=== PATIENT | female | born 1995 | race Caucasian/White ===

== ENCOUNTER 2021-04-03 21:04 | Emergency (ER) | payer BC ==
[~2021-04-03] VITALS: Ht 177.8 cm; Wt 103.7 kg
[2021-04-03] MEDS ORDERED: PRAZ5CAP PO (21:22)
[2021-04-03] MEDS ORDERED: PRIS50TA PO (21:22)
[2021-04-03] MEDS ORDERED: ONDANSETRON 4MG/2ML VIAL IV ONE (23:20)
[2021-04-03] MEDS ORDERED: NS 1,000 ML IV ONE (23:20)
[2021-04-04 00:10] LABS: BASO % 0.1 % (0.0-1.0); HEMOGLOBIN 13.7 g/dl (12.0-15.5); LYMPH # 1.2 10^3/uL (1.5-5.0); LYMPH % 8.8 % (24.0-44.0); MEAN CORPUSCULAR HEMOGLOBIN 27.5 pg (27.0-33.0); MEAN CORPUSCULAR HGB CONC 32.6 g/dl (32.0-36.5); MEAN CORPUSCULAR VOLUME 84.2 fl (80.0-96.0); MONO # 0.4 10^3/uL (0.0-0.8); NEUTROPHILS # 11.4 10^3/uL (1.5-8.5); NEUTROPHILS % 86.9 % (36.0-66.0); PLATELET COUNT, AUTOMATED 221 10^3/uL (150-450); RED BLOOD COUNT 4.99 10^6/uL (4.00-5.40); WHITE BLOOD COUNT 13.1 10^3/uL (4.0-10.0)
[2021-04-04 00:12] LABS: ALBUMIN 4.3 GM/DL (3.2-5.2); BILIRUBIN,DIRECT 0.2 MG/DL (0.0-0.2); BILIRUBIN,TOTAL 0.4 MG/DL (0.2-1.0); TOTAL PROTEIN 7.8 GM/DL (6.4-8.2)
[2021-04-04] MEDS ORDERED: METOCLOPRAMIDE INJ 10MG/2ML VIAL (J2765 PER 1) IV ONE (00:30)
[2021-04-04] MEDS ORDERED: PROMETHAZINE INJ 25 MG/ML VIAL (J2550) IV ONE (01:15)
[2021-04-04] MEDS ORDERED: diphenhydrAMINE 50MG/ML VIAL (J1200) IV ONE (01:15)
[2021-04-04] MEDS ORDERED: PROM50TA4 PO (02:02)
[2021-04-04 02:12] VITALS: BP 113/59
== END 2021-04-04 02:14 | disposition home or self-care (01) ==
LOC: M ED 21:04
DX: R11.2 Nausea with vomiting, unspecified (principal); R51.9 Headache, unspecified; F41.9 Anxiety disorder, unspecified; F43.10 Post-traumatic stress disorder, unspecified; F31.9 Bipolar disorder, unspecified; Z91.018 Allergy to other foods; Z79.899 Other long term (current) drug therapy
CPT/HCPCS: 80047; 80076; 81001; 83690; 84702; 85025; 87086; 96361; 96374; 96375; 99284; J1200; J2405; J2765